=== PATIENT | female | born 2000 | race Caucasian/White ===

== ENCOUNTER 2019-08-20 10:38 | Inpatient (IN) ==
[2019-08-20] MEDS ORDERED: BUTORPHANOL 1 MG/ML VIAL ONE (10:57)
[2019-08-20] MEDS ORDERED: MAGNESIUM SULF DRIP 40 GM/1,000 ML ML IV ONE (11:01)
[2019-08-20] MEDS ORDERED: MAGNESIUM SULF RIDER 100 ML IV ONE ×2 (11:01→11:03)
[2019-08-20] MEDS ORDERED: CALCIUM GLUCONATE 1,000 MG in SODIUM CHLORIDE 0.9% 100 ML IV PRN (11:03)
[2019-08-20] MEDS ORDERED: BUTORPHANOL 1 MG/ML VIAL IV ONE (11:13)
[2019-08-20] MEDS ORDERED: ONDANSETRON 4 MG/2 ML VIAL ONE (11:18)
[2019-08-20] MEDS ORDERED: ONDANSETRON 4 MG/2 ML VIAL IV ONE (11:21)
[2019-08-20] MEDS: LACTATED RINGERS 1,000 ML IV SCH (11:21)
[2019-08-20 11:23] LABS: Basophils % 0.1 % (0.0-0.8); Hematocrit 26.7 VOL% (35.7-47.0); Hemoglobin 8.2 GM/DL (12.0-16.0); Immature Granulocytes % 1.8 %; Immature Granulocytes Absolute 0.37 #; Lymphocytes % 19.8 % (21.3-54.2); Mean Corpuscular HGB Conc 30.7 GM/DL (32-36); Mean Corpuscular Volume 79.5 FL (87-102); Mean Platelet Volume 9.3 FL (9.6-12.0); Monocytes % 6.7 % (1.7-12.7); Neutrophils % 71.6 % (38.7-73.9); Platelet Count 441 T/CUMM (130-400); Red Blood Count 3.36 MC/CUMM (3.8-5.5); Red Cell Distribution Width 16.4 % (9.3-17.3); White Blood Count 20.1 T/CUMM (4-12)
[2019-08-20] MEDS ORDERED: MAGNESIUM SULF DRIP 40 GM/1,000 ML ML IV SCH (11:30)
[2019-08-20] MEDS ORDERED: MEPERIDINE 25 MG/1 ML VIAL IV ONE (11:35)
[2019-08-20] MEDS ORDERED: MEPERIDINE 25 MG/1 ML VIAL ONE (11:37)
[2019-08-20 11:50] LABS: Anisocytosis 1+; Band Neutrophils 3 % (0-10); Lymphocytes 17 % (20-55); Platelet Estimate Normal; Segmented Neutrophils 66 % (50-85); Total Cells Counted 100
[2019-08-20] MEDS ORDERED: SIMETHICONE CHEW 125 MG TABLET PO PRN (12:42)
[2019-08-20 15:37] LABS: Alanine Aminotransferase 11 U/L (13-56); Albumin 2.9 G/DL (3.4-5.0); Alkaline Phosphatase 121 U/L (45-117); Amylase 66 U/L (25-115); Aspartate Amino Transferase 8 U/L (0-37); Bilirubin,Total < 0.39 MG/DL (0.2-1.0); Blood Urea Nitrogen 3 MG/DL (7-18); Calcium 8.1 MG/DL (8.5-10.1); Estimated Glom Filtration Rate 155 ML/MIN; Glucose 88 MG/DL (74-106); Osmolality,Calculated 278.1 MOS/KG (273-304); Total Protein 6.6 G/DL (6.4-8.3)
[2019-08-20 16:23] LABS: Apearance,Urine CLEAR (Clear); Bacteria,Urine Occasional /HPF (Few); Bilirubin,Urine Negative (Negative); Blood, Urine Negative (Negative); Glucose,Urine (UA) Negative (Negative); Hyaline Casts,Urine 1 /LPF (0-3); Ketones,Urine 5 mg/dL (Negative); Mucus,Urine Occasional /LPF (Occasional); Nitrite,Urine Negative (Negative); Protein,Urine Negative; RBC,Urine <1 /HPF (0-4); Urine Color Yellow (Yellow); Urine Specific Gravity 1.013 (1.001-1.035); Urine Urobilinogen < 2.0 EU/DL (0.2-1.0); WBC,Urine 1 /HPF (0-6)
[2019-08-20] MEDS: MORPHINE 4 MG/1 ML VIAL IV PRN ×2 (16:44→19:28)
[2019-08-20] MEDS: ONDANSETRON 4 MG/2 ML VIAL IV PRN (16:45)
[2019-08-20 19:49] LABS: Basophils # 0.1 10*3/uL (0.0-0.2); Basophils % 0.2 % (0.0-0.8); Eosinophils % 0.1 % (0.00-10.9); Hematocrit 25.7 VOL% (35.7-47.0); Hemoglobin 7.8 GM/DL (12.0-16.0); Immature Granulocytes % 1.5 %; Immature Granulocytes Absolute 0.33 #; Lymphocytes % 17.7 % (21.3-54.2); Mean Corpuscular HGB Conc 30.4 GM/DL (32-36); Mean Corpuscular Volume 81.6 FL (87-102); Mean Platelet Volume 8.8 FL (9.6-12.0); Monocytes % 6.7 % (1.7-12.7); Neutrophils % 73.8 % (38.7-73.9); Platelet Count 383 T/CUMM (130-400); Red Blood Count 3.15 MC/CUMM (3.8-5.5); Red Cell Distribution Width 16.5 % (9.3-17.3); White Blood Count 22.7 T/CUMM (4-12)
[2019-08-20] MEDS ORDERED: ALUM/MAG/SIMETH/LIDO VISC 1:1 30 ML BOTTLE PO ONE (19:49)
[2019-08-20] MEDS ORDERED: ONDANSETRON 4 MG/2 ML VIAL IV PRN (21:47)
[2019-08-20] MEDS: BUTORPHANOL 1 MG/ML VIAL IV PRN (22:38)
[2019-08-21 01:15] LABS: Anisocytosis 1+; Eosinophils 3 % (0-10); Lymphocytes 20 % (20-55); Platelet Estimate Adequate; Segmented Neutrophils 68 % (50-85); Total Cells Counted 100
[2019-08-21] MEDS: BUTORPHANOL 1 MG/ML VIAL IV PRN ×2 (02:37→07:51)
[2019-08-21] MEDS: ONDANSETRON 4 MG/2 ML VIAL IV PRN (08:00)
[2019-08-21 08:08] LABS: Basophils % 0.1 % (0.0-0.8); Eosinophils % 0.1 % (0.00-10.9); Hematocrit 25.5 VOL% (35.7-47.0); Immature Granulocytes % 0.7 %; Immature Granulocytes Absolute 0.14 #; Lymphocytes # 2.9 10*3/uL (1.4-4.0); Lymphocytes % 14.8 % (21.3-54.2); Mean Corpuscular HGB Conc 31.4 GM/DL (32-36); Mean Corpuscular Volume 79.9 FL (87-102); Mean Platelet Volume 9.3 FL (9.6-12.0); Monocytes % 8.1 % (1.7-12.7); Neutrophils % 76.2 % (38.7-73.9); Platelet Count 394 T/CUMM (130-400); Red Blood Count 3.19 MC/CUMM (3.8-5.5); Red Cell Distribution Width 16.5 % (9.3-17.3); White Blood Count 19.7 T/CUMM (4-12)
[2019-08-21] MEDS: NIFEdipine 10 MG CAPSULE PO SCH ×4 (09:24→22:36)
[2019-08-21] MEDS: LACTATED RINGERS 1,000 ML IV SCH (10:40)
[2019-08-21] MEDS: ALUMINUM/MAGNES/SIMETH MAX STR 30 ML UDCUP PO PRN (12:42)
[2019-08-21] MEDS: ACETAMINOPHEN 500 MG TABLET PO PRN ×2 (13:03→19:44)
[2019-08-21 16:27] LABS: Alanine Aminotransferase 10 U/L (13-56); Alkaline Phosphatase 131 U/L (45-117); Aspartate Amino Transferase 9 U/L (0-37); Bilirubin,Direct < 0.100 MG/DL (0.0-0.20); Bilirubin,Indirect 0.3 MG/DL (0.0-1.0); Bilirubin,Total < 0.39 MG/DL (0.2-1.0); Total Protein 6.7 G/DL (6.4-8.3)
[2019-08-21] MEDS: PIPERACILLIN/TAZOBACTAM 3,375 MG in SODIUM CHLORIDE 0.9% 100 ML IV SCH (17:00)
[2019-08-22] MEDS: PIPERACILLIN/TAZOBACTAM 3,375 MG in SODIUM CHLORIDE 0.9% 100 ML IV SCH ×3 (00:28→16:14)
[2019-08-22] MEDS: ACETAMINOPHEN 500 MG TABLET PO PRN ×4 (02:20→22:15)
[2019-08-22] MEDS: NIFEdipine 10 MG CAPSULE PO SCH ×6 (02:20→22:15)
[2019-08-22] MEDS ORDERED: ENOXAPARIN 40 MG/0.4 ML SYRINGE SUBCUT SCH (05:30)
[2019-08-22] MEDS ORDERED: OXYTOCIN/LR 0 UNIT/0 ML BAG IV ONE (23:08)
[2019-08-23] MEDS: NIFEdipine 10 MG CAPSULE PO SCH ×6 (02:09→22:07)
[2019-08-23] MEDS: PIPERACILLIN/TAZOBACTAM 3,375 MG in SODIUM CHLORIDE 0.9% 100 ML IV SCH ×3 (02:09→16:25)
[2019-08-23] MEDS: ACETAMINOPHEN 500 MG TABLET PO PRN ×2 (06:04→22:07)
[2019-08-23] MEDS ORDERED: CALCIUM GLUCONATE 1,000 MG/10 ML VIAL IV ONE (08:59)
[2019-08-23] MEDS: ALUMINUM/MAGNES/SIMETH MAX STR 30 ML UDCUP PO PRN (10:33)
[2019-08-24] MEDS: PIPERACILLIN/TAZOBACTAM 3,375 MG in SODIUM CHLORIDE 0.9% 100 ML IV SCH ×2 (01:38→09:00)
[2019-08-24] MEDS: NIFEdipine 10 MG CAPSULE PO SCH ×4 (01:53→14:45)
[2019-08-24 09:31] LABS: Basophils % 0.2 % (0.0-0.8); Eosinophils # 0.1 10*3/uL (0.0-0.87); Eosinophils % 0.7 % (0.00-10.9); Hematocrit 26.9 VOL% (35.7-47.0); Hemoglobin 8.2 GM/DL (12.0-16.0); Immature Granulocytes % 0.9 %; Immature Granulocytes Absolute 0.12 #; Lymphocytes # 2.7 10*3/uL (1.4-4.0); Lymphocytes % 19.6 % (21.3-54.2); Mean Corpuscular HGB Conc 30.5 GM/DL (32-36); Mean Corpuscular Volume 78.9 FL (87-102); Mean Platelet Volume 9.1 FL (9.6-12.0); Monocytes % 6.2 % (1.7-12.7); Neutrophils % 72.4 % (38.7-73.9); Platelet Count 384 T/CUMM (130-400); Red Blood Count 3.41 MC/CUMM (3.8-5.5); Red Cell Distribution Width 16.5 % (9.3-17.3); White Blood Count 13.5 T/CUMM (4-12)
[2019-08-24 14:33] LABS: Albumin 2.5 G/DL (3.4-5.0); Bilirubin,Direct 0.22 MG/DL (0.0-0.20); Bilirubin,Indirect 0.6 MG/DL (0.0-1.0); Bilirubin,Total 0.8 MG/DL (0.2-1.0); Total Protein 6.7 G/DL (6.4-8.3)
[2019-08-24 15:06] VITALS: BP 131/65
== END 2019-08-24 15:54 | disposition hospice, home (50) | DRG 563 ==
LOC: N.LDOUT 10:38 → N.LD 10:40
PROVIDERS: ADMIT Obstetrics & Gynecology; ATTEND Obstetrics & Gynecology

== ENCOUNTER 2019-09-27 10:18 | Inpatient (IN) ==
[2019-09-27] MEDS ORDERED: LACTATED RINGERS 1,000 ML IV ONE (10:46)
[2019-09-27 11:11] LABS: Basophils % 0.3 % (0.0-0.8); Eosinophils # 0.1 10*3/uL (0.0-0.87); Eosinophils % 0.5 % (0.00-10.9); Hematocrit 30.8 VOL% (35.7-47.0); Hemoglobin 9.6 GM/DL (12.0-16.0); Immature Granulocytes % 0.6 %; Immature Granulocytes Absolute 0.09 #; Lymphocytes # 3.3 10*3/uL (1.4-4.0); Lymphocytes % 21.4 % (21.3-54.2); Mean Corpuscular HGB Conc 31.2 GM/DL (32-36); Mean Corpuscular Volume 78.2 FL (87-102); Mean Platelet Volume 9.5 FL (9.6-12.0); Neutrophils % 72.2 % (38.7-73.9); Platelet Count 475 T/CUMM (130-400); Red Blood Count 3.94 MC/CUMM (3.8-5.5); Red Cell Distribution Width 18.7 % (9.3-17.3); White Blood Count 15.3 T/CUMM (4-12)
[2019-09-27] MEDS ORDERED: CITRIC ACID/SODIUM CITRATE 30 ML UDCUP PO ONE (11:23)
[2019-09-27] MEDS ORDERED: FAMOTIDINE 20 MG/2 ML VIAL IV ONE (11:23)
[2019-09-27] MEDS ORDERED: ceFAZolin 2,000 MG in PREMIX 1 EACH IV ONE (11:23)
[2019-09-27] MEDS ORDERED: LACTATED RINGERS 1,000 ML IV SCH ×2 (11:30→13:30)
[2019-09-27] MEDS ORDERED: OXYTOCIN/LR 20 UNIT/1,000 ML BAG IV ONE ×2 (11:31→13:05)
[2019-09-27] MEDS ORDERED: BUPIVACAINE SPINAL 0.75% 2 ML AMP SPINAL ONE (11:51)
[2019-09-27] MEDS ORDERED: MORPHINE 10 MG/10 ML VIAL ONE (11:52)
[2019-09-27] MEDS ORDERED: fentaNYL 100 MCG/2 ML VIAL ONE (11:52)
[2019-09-27] MEDS ORDERED: PHENYLEPHRINE 1 MG/10 ML SYRINGE IV ONE (11:53)
[2019-09-27] MEDS ORDERED: OXYTOCIN 10 UNIT/ML VIAL ONE (11:53)
[2019-09-27] MEDS ORDERED: RHO(D) IMMUNE GLOBULIN 300 MCG SYRINGE IM ONE (13:05)
[2019-09-27] MEDS ORDERED: ACETAMINOPHEN 325 MG TABLET PO PRN (13:05)
[2019-09-27] MEDS ORDERED: ONDANSETRON 4 MG/2 ML VIAL IV PRN (13:05)
[2019-09-27] MEDS ORDERED: ceFAZolin 1,000 MG in SYRINGE 1 EACH IV SCH (13:30)
[2019-09-27 13:43] LABS: Apearance,Urine CLEAR (Clear); Bacteria,Urine Occasional /HPF (Few); Bilirubin,Urine Negative (Negative); Blood, Urine Negative (Negative); Glucose,Urine (UA) Negative (Negative); Ketones,Urine Negative (Negative); Mucus,Urine Occasional /LPF (Occasional); Nitrite,Urine Negative (Negative); Protein,Urine Negative; RBC,Urine 2 /HPF (0-4); Urine Color Yellow (Yellow); Urine Urobilinogen < 2.0 EU/DL (0.2-1.0); WBC,Urine 1 /HPF (0-6)
[2019-09-27 13:46] LABS: Barbiturates Screen,Urine Negative (Negative); Benzodiazepines Screen,Urine Negative (Negative); Cannabinoid Screen,Urine Negative (Negative); Opiate Screen,Urine Negative (Negative); Phencyclidine Screen,Urine Negative (Negative)
[2019-09-27 20:17] LABS: Basophils % 0.1 % (0.0-0.8); Hematocrit 27.3 VOL% (35.7-47.0); Hemoglobin 8.5 GM/DL (12.0-16.0); Immature Granulocytes % 0.6 %; Immature Granulocytes Absolute 0.14 #; Lymphocytes # 2.5 10*3/uL (1.4-4.0); Lymphocytes % 10.5 % (21.3-54.2); Mean Corpuscular HGB Conc 31.1 GM/DL (32-36); Mean Corpuscular Volume 79.1 FL (87-102); Mean Platelet Volume 9.7 FL (9.6-12.0); Monocytes % 2.9 % (1.7-12.7); Neutrophils % 85.9 % (38.7-73.9); Platelet Count 426 T/CUMM (130-400); Red Blood Count 3.45 MC/CUMM (3.8-5.5); Red Cell Distribution Width 18.5 % (9.3-17.3); White Blood Count 24.1 T/CUMM (4-12)
[2019-09-27 20:36] LABS: Anisocytosis Slight; Hypochromasia 1+; Lymphocytes 12 % (20-55); Segmented Neutrophils 86 % (50-85); Total Cells Counted 100
[2019-09-27 20:37] LABS: Platelet Estimate Adequate; Polychromasia Slight
[2019-09-27] MEDS: DOCUSATE SODIUM 100 MG CAPSULE PO SCH (20:38)
[2019-09-27] MEDS: ceFAZolin 1,000 MG in SYRINGE 1 EACH IV SCH (20:38)
[2019-09-28] MEDS: SIMETHICONE CHEW 80 MG TABLET PO PRN ×2 (03:24→10:30)
[2019-09-28] MEDS: ceFAZolin 1,000 MG in SYRINGE 1 EACH IV SCH (03:24)
[2019-09-28] MEDS: oxyCODONE/ACETAMINOPHEN 5-325 MG TABLET PO PRN ×3 (03:41→19:42)
[2019-09-28 05:31] LABS: Basophils % 0.2 % (0.0-0.8); Eosinophils % 0.1 % (0.00-10.9); Hematocrit 24.5 VOL% (35.7-47.0); Hemoglobin 7.5 GM/DL (12.0-16.0); Immature Granulocytes % 0.8 %; Immature Granulocytes Absolute 0.14 #; Lymphocytes # 4.1 10*3/uL (1.4-4.0); Lymphocytes % 22.8 % (21.3-54.2); Mean Corpuscular HGB Conc 30.6 GM/DL (32-36); Mean Platelet Volume 9.5 FL (9.6-12.0); Monocytes % 5.8 % (1.7-12.7); Neutrophils % 70.3 % (38.7-73.9); Platelet Count 414 T/CUMM (130-400); Red Blood Count 3.14 MC/CUMM (3.8-5.5); Red Cell Distribution Width 18.5 % (9.3-17.3); White Blood Count 17.8 T/CUMM (4-12)
[2019-09-28] MEDS: IBUPROFEN 800 MG TABLET PO PRN ×3 (06:17→22:26)
[2019-09-28] MEDS: MAGNESIUM HYDROXIDE SUSP 30 ML UDCUP PO PRN ×2 (08:17→22:26)
[2019-09-28] MEDS: DOCUSATE SODIUM 100 MG CAPSULE PO SCH ×2 (08:17→22:26)
[2019-09-28] MEDS: MULTIVITAMIN (PRENATAL) TABLET PO SCH (08:17)
[2019-09-28] MEDS ORDERED: FERROUS SULFATE 325 MG TABLET PO SCH (09:00)
[2019-09-28] MEDS: FERROUS GLUCONATE 324 MG TABLET PO SCH ×3 (09:20→22:26)
[2019-09-29] MEDS: oxyCODONE/ACETAMINOPHEN 5-325 MG TABLET PO PRN ×3 (04:32→21:25)
[2019-09-29] MEDS: MULTIVITAMIN (PRENATAL) TABLET PO SCH (08:50)
[2019-09-29] MEDS: FERROUS GLUCONATE 324 MG TABLET PO SCH ×3 (08:50→21:18)
[2019-09-29] MEDS: DOCUSATE SODIUM 100 MG CAPSULE PO SCH ×2 (08:50→21:18)
[2019-09-29] MEDS: MAGNESIUM HYDROXIDE SUSP 30 ML UDCUP PO PRN (08:50)
[2019-09-29] MEDS: IBUPROFEN 800 MG TABLET PO PRN ×2 (10:49→21:25)
[2019-09-30 07:27] VITALS: BP 117/77
[2019-09-30] MEDS: FERROUS GLUCONATE 324 MG TABLET PO SCH (09:53)
[2019-09-30] MEDS: DOCUSATE SODIUM 100 MG CAPSULE PO SCH (09:53)
[2019-09-30] MEDS: MULTIVITAMIN (PRENATAL) TABLET PO SCH (09:53)
[2019-09-30] MEDS ORDERED: DIPH/TET/ACEL PERT BOOSTER VACCINE 0.5 ML VIAL IM ONE (10:22)
[2019-09-30] MEDS ORDERED: INFLUENZA VIRUS VACCINE 0.5 ML SYRINGE IM ONE (10:22)
== END 2019-09-30 11:40 | disposition home or self-care (01) | DRG 540 ==
LOC: N.LDOUT 10:18 → N.LD 10:20 → N.OB 17:45
PROVIDERS: ADMIT Obstetrics & Gynecology; ATTEND Obstetrics & Gynecology
PROC: LDCSECT (ICD-10-PCS; 2019-09-27 11:30)

== ENCOUNTER 2020-11-13 00:10 | Observation (INO) ==
[2020-11-13] MEDS ORDERED: DEXTROSE 5% NACL 0.45% 1,000 ML IV SCH (02:00)
[2020-11-13] MEDS ORDERED: HYDROmorphone 2 MG/1 ML VIAL IV PRN ×2 (02:00→09:51)
[2020-11-13] MEDS ORDERED: ONDANSETRON 4 MG/2 ML VIAL IV PRN ×2 (02:00→09:51)
[2020-11-13] MEDS: DEXTROSE 5% NACL 0.45% 1,000 ML IV SCH ×2 (02:14→10:13)
[2020-11-13] MEDS: PIPERACILLIN/TAZOBACTAM 3.375 MG in SODIUM CHLORIDE 0.9% 100 ML IV SCH ×3 (02:15→17:44)
[2020-11-13] MEDS: HYDROmorphone 2 MG/1 ML VIAL IV PRN ×3 (02:15→12:02)
[2020-11-13] MEDS: ONDANSETRON 4 MG/2 ML VIAL IV PRN ×2 (02:16→13:55)
[2020-11-13 06:38] LABS: Basophils % 0.2 % (0.0-0.8); Eosinophils # 0.1 10*3/uL (0.0-0.87); Eosinophils % 0.9 % (0.00-10.9); Hematocrit 33.2 VOL% (35.7-47.0); Hemoglobin 10.7 GM/DL (12.0-16.0); Immature Granulocytes % 0.4 %; Immature Granulocytes Absolute 0.05 #; Lymphocytes # 2.6 10*3/uL (1.4-4.0); Mean Corpuscular HGB Conc 32.2 GM/DL (32-36); Mean Platelet Volume 9.2 FL (9.6-12.0); Monocytes % 5.2 % (1.7-12.7); Neutrophils % 72.3 % (38.7-73.9); Platelet Count 264 T/CUMM (130-400); Red Cell Distribution Width 15.7 % (9.3-17.3); White Blood Count 12.2 T/CUMM (4-12)
[2020-11-13] MEDS ORDERED: TISSUE ADHESIVE 1 EACH APPLICATOR TOP ONE (06:40)
[2020-11-13] MEDS ORDERED: LIDOCAINE 1%/EPI INJ 20 ML VIAL ONE (06:40)
[2020-11-13] MEDS ORDERED: BUPIVACAINE MPF 0.25% 30 ML VIAL ONE (06:40)
[2020-11-13 06:54] LABS: Calcium 8.1 MG/DL (8.5-10.1); Osmolality,Calculated 269.8 MOS/KG (273-304)
[2020-11-13] MEDS ORDERED: SEVOFLURANE 1 UNIT/15 MINUTE INH ONE ×3 (07:09→09:21)
[2020-11-13] MEDS ORDERED: propofoL 200 MG/20 ML VIAL IV ONE (07:09)
[2020-11-13] MEDS ORDERED: ROCURONIUM 50 MG/5 ML VIAL IV ONE (07:09)
[2020-11-13] MEDS ORDERED: DEXAMETHASONE 4 MG/1 ML VIAL ONE ×2 (07:09→08:58)
[2020-11-13] MEDS ORDERED: SUCCINYLCHOLINE 200 MG/10 ML VIAL ONE (07:09)
[2020-11-13] MEDS ORDERED: ONDANSETRON 4 MG/2 ML VIAL ONE (07:09)
[2020-11-13] MEDS ORDERED: LIDOCAINE 2% 5 ML VIAL ONE (07:09)
[2020-11-13] MEDS ORDERED: fentaNYL 100 MCG/2 ML VIAL ONE (07:10)
[2020-11-13 07:38] LABS: Bilirubin,Urine Negative (Negative); Blood, Urine Negative (Negative); Glucose,Urine (UA) Negative (Negative); Ketones,Urine Negative (Negative); Mucus,Urine Occasional /LPF (Occasional); Nitrite,Urine Negative (Negative); Protein,Urine Negative; RBC,Urine 2 /HPF (0-4); Squamous Epithelial Cell,Urine Few /HPF (0-10); Urine Appearance CLEAR (Clear); Urine Color Yellow (Yellow); Urine Urobilinogen < 2.0 EU/DL (0.2-1.0); WBC,Urine 31 /HPF (0-6)
[2020-11-13] MEDS ORDERED: PANTOPRAZOLE 40 MG TABLET PO SCH (09:00)
[2020-11-13] MEDS ORDERED: ACETAMINOPHEN 1,000 MG/100 ML VIAL IV ONE (09:19)
[2020-11-13] MEDS ORDERED: KETOROLAC 30 MG/1 ML VIAL ONE (09:19)
[2020-11-13] MEDS ORDERED: PHENYLEPHRINE 1 MG/10 ML SYRINGE IV ONE ×2 (09:20)
[2020-11-13] MEDS ORDERED: GLYCOPYRROLATE 0.4 MG/2 ML VIAL ONE (09:23)
[2020-11-13] MEDS ORDERED: NEOSTIGMINE 10 MG/10 ML VIAL ONE (09:23)
[2020-11-13] MEDS ORDERED: LACTATED RINGERS 1,000 ML IV ONE (09:44)
[2020-11-13] MEDS: PANTOPRAZOLE 40 MG TABLET PO SCH (10:12)
[2020-11-14] MEDS: DEXTROSE 5% NACL 0.45% 1,000 ML IV SCH (00:31)
[2020-11-14] MEDS: PIPERACILLIN/TAZOBACTAM 3.375 MG in SODIUM CHLORIDE 0.9% 100 ML IV SCH ×2 (03:08→11:35)
[2020-11-14] MEDS: PANTOPRAZOLE 40 MG TABLET PO SCH (11:36)
[2020-11-14 16:45] VITALS: BP 106/53
== END 2020-11-14 14:56 | disposition home or self-care (01) ==
LOC: N.EDINP 00:10 → N.ED 00:10 → N.3E 03:52
PROVIDERS: ADMIT Surgery; ATTEND Surgery